=== PATIENT | male | born 1970 | race Caucasian/White ===

== ENCOUNTER 2018-08-17 14:04 | Inpatient (IN) | payer OTHER ==
[2018-08-17] MEDS ORDERED: SODIUM CHLORIDE 0.9% 500 ML INFUS.BAG IV ONE (14:26)
--- NOTE | 2018-08-17 14:43 | PDOC ---
History of Present Illness <Maritza Whitman - Last Filed: 08/17/18 16:03> - General History Source: Patient Exam Limitations: No Limitations - History of Present Illness Initial Comments: 48 yo morbidly obese M w a hx of NIDDM, HTN, HLD, KACY, multiple spinal disc herniations s/p laminectomy september 2017, presents to the ER after he was noted to be unresponsive upstairs in the hospital by a nurse. The patient was visiting his mother who is currently in the hospital, and while he was sitting down a nurse thought he was unresponsive. The patient said he has sleep apnea and is always tired no matter how much he sleeps. He states that today he dozed off in his chair before falling asleep and doesn't believe he was unresponsive, just believes he took a nap. The patient was diagnosed with sleep apnea and knows he should be using his CPAP but doesn't like to use it bc he feels claustrophobic. The patient says that he is always tired, and occasionally his legs and body just give out on him. He denies hypnogogic or hypnopompic hallucinations. Patient endorses waking up and feeling warm for the past few days which were associated with episodes of chills. He denies any recent chest pain, SOB, cough, headache, lightheadedness, abdominal pain, dysuria, frequency, or urgency. PCP: Dr. Hernadez (Formerly Dr. Gutierrez) Allergies: NKA, NKDA Social Hx: recreational drinking. Denies smoking or other substance usage. PSH: Laminectomy, right knee replacement. 08/17/18 16:34 <Maurizio Peña - Last Filed: 08/17/18 17:00> - General Stated Complaint: UNRESPONSIVE Time Seen by Provider: 08/17/18 14:21 Past History <Maritza Whitman - Last Filed: 08/17/18 16:03> - Past Medical History Anemia: No Asthma: No Cancer: No Cardiac Disorders: No CVA: No COPD: No CHF: No Dementia: No Diabetes: No GI Disorders: Yes (PUD) Disorders: No HTN: Yes Hypercholesterolemia: Yes Liver Disease: No Seizures: No Thyroid Disease: No - Surgical History Abdominal Surgery: Yes (LAPAROSCOPIC GASTRIC BANDING) Appendectomy: No Cardiac Surgery: No Cholecystectomy: No Lung Surgery: No Neurologic Surgery: No Orthopedic Surgery: No - Immunization History Immunization Up to Date: Yes - Suicide/Smoking/Psychosocial Hx Smoking Status: No Smoking History: Former smoker Have you smoked in the past 12 months: No Number of Cigarettes Smoked Daily: 0 If you are a former smoker, when did you quit?: 17 YRS Hx Alcohol Use: No Drug/Substance Use Hx: No Substance Use Type: Alcohol Hx Substance Use Treatment: No <Maurizio Peña - Last Filed: 08/17/18 17:00> - Past Medical History Allergies/Adverse Reactions: Allergies Allergy/AdvReac Type Severity Reaction Status Date / Time No Known Allergies Allergy Verified 03/07/16 15:31 Home Medications: Ambulatory Orders Atorvastatin Calcium [Lipitor] 10 mg PO HS 05/12/12 Lisinopril/Hydrochlorothiazide [Lisinopril-Hctz 10-12.5 mg Tab] 1 each PO DAILY 05/12/12 Multivitamin [Multivitamins] 1 each PO DAILY 10/25/13 Sennosides/Docusate Sodium [Eql Stool Softener-Stim Lax Tb] 2 each PO DAILY 07/09 Diazepam [Valium] 5 mg PO Q8H #10 tablet MDD 3 12/08/15 Methylprednisolone [Medrol Dose Luis] 4 mg PO ASDIR #21 tablet 12/08/15 Review of Systems - Review of Systems Able to Perform ROS?: Yes Comments:: CONSTITUTIONAL: Present: Chills, fatigue Absent: fever EYES: Absent: visual changes ENT: Absent: ear pain, no sore throat CARDIOVASCULAR: Absent: chest pain, no palpitations RESPIRATORY: Absent: cough, no SOB GI: Absent: abdominal pain, no nausea, no vomiting, no constipation, no diarrhea GENITOURINARY: Absent: dysuria, no frequency, no hematuria MUSKULOSKELETAL: Present: arthralgia, back pain Absent: no myalgia SKIN: Absent: rash NEURO: Absent: headache <Maurizio Peña - Last Filed: 08/17/18 17:00> *Physical Exam - Vital Signs Last Vital Signs Temp Pulse Resp BP Pulse Ox 97.7 F 79 18 139/86 92 L 08/17/18 14:41 08/17/18 14:41 08/17/18 14:41 08/17/18 14:41 08/17/18 14:41 <Maritza Whitmanabigail - Last Filed: 08/17/18 16:03> - Physical Exam Comments: GENERAL: Well-appearing, well-nourished. No apparent distress. HEENT: Normocephalic, atraumatic. PERRL, EOM intact. CARDIOVASCULAR: Normal S1, S2. Regular rate and rhythm. PULMONARY: No evidence of respiratory distress. Lungs clear to auscultation bilaterally. No wheezing, rales or rhonchi. ABDOMEN: Soft, non-distended, non-tender. EXTREMITIES: Normal ROM in all four extremities. No gross deformities. SKIN: the right leg is warm, erythematous and mildly painful to palpation. NEUROLOGICAL: No focal neurological deficits. <Maurizio Peña - Last Filed: 08/17/18 17:00> ED Treatment Course - LABORATORY CBC & Chemistry Diagram: 08/17/18 14:50 08/17/18 14:50 - ADDITIONAL ORDERS Additional order review: Laboratory Results 08/17/18 08/17/18 14:50 14:28 Sodium 141 Potassium 3.5 Chloride 98 Carbon Dioxide 39 H Anion Gap 4 L BUN 12 Creatinine 0.7 Creat Clearance w eGFR 119.37 POC Glucometer 152 Random Glucose 146 H Calcium 8.4 L Total Bilirubin 0.6 AST 20 ALT 23 Alkaline Phosphatase 102 Troponin I 0.08 H B-Natriuretic Peptide 152.2 H Total Protein 6.3 L Albumin 3.5 08/17/18 08/17/18 14:50 14:28 RBC 5.38 MCV 86.3 MCHC 33.4 RDW 15.0 D MPV 7.4 L Neutrophils % 69.0 Lymphocytes % 20.6 Monocytes % 7.7 Eosinophils % 2.1 Basophils % 0.6 POC Glucometer 152 - Medications Given in the ED: ED Medications Discontinued Medications Generic Name Dose Route Start Last Admin Trade Name Freq PRN Reason Stop Dose Admin Sodium Chloride 1,000 ml 08/17/18 14:26 08/17/18 14:31 Normal Saline - IV 08/17/18 14:27 1,000 ml ONCE ONE Administration <Maritza Whitman - Last Filed: 08/17/18 16:03> - LABORATORY CBC & Chemistry Diagram: 08/17/18 14:50 08/17/18 14:50 - ADDITIONAL ORDERS Additional order review: Laboratory Results 08/17/18 14:28 POC Glucometer 152 08/17/18 14:28 POC Glucometer 152 - Medications Given in the ED: ED Medications Discontinued Medications Generic Name Dose Route Start Last Admin Trade Name Brian PRN Reason Stop Dose Admin Sodium Chloride 1,000 ml 08/17/18 14:26 08/17/18 14:31 Normal Saline - IV 08/17/18 14:27 1,000 ml ONCE ONE Administration <Maurizio Peña - Last Filed: 08/17/18 17:00> Medical Decision Making - Medical Decision Making 48 yo morbidly obese M w a hx of NIDDM, HTN, HLD, KACY, multiple spinal disc herniations s/p laminectomy september 2017, presents to the ER after he was noted to be unresponsive upstairs in the hospital by a nurse. The patient was visiting his mother who is currently in the hospital, and while he was sitting down a nurse thought he was unresponsive. The patient said he has sleep apnea and is always tired no matter how much he sleeps. He states that today he dozed off in his chair before falling asleep and doesn't believe he was unresponsive, just believes he took a nap. The patient was diagnosed with sleep apnea and knows he should be using his CPAP but doesn't like to use it bc he feels claustrophobic. The patient says that he is always tired, and occasionally his legs and body just give out on him. He denies hypnogogic or hypnopompic hallucinations. VS: patient is satting at 92 on RA. DDx IBNLT: KACY, narcolepsy, [place], arrhythmia, electrolyte disturbance, syncope, seizure, infection, uti, cellulitis. Plan: Labs, ekg, CXR, IV hydration, re-assess. - Area on left leg appears cellulitic. Pending labs, will consider giving patient oral Abx for cellulitis treatment. Labs show a mildly elevated trop of 0.08. Will admit patient to Tele obs for further evaluation and a cardiac consult. Spoke with Dr. Rodriguez - the patient's old PCP who agrees with plan to admit patient to the hospital. The patient now uses Dr. Hernadez for insurance purposes. Will Call Dr. Hernadez's office for admission. Dr. Hernadez accepted the patient admission. He requested I place a cardiac consult for Dr. Bradlow - will place consult as per Dr. Hernadez's request. <Maurizio Peña - Last Filed: 08/17/18 17:00> *DC/Admit/Observation/Transfer - Discharge Dispostion Decision to Admit order: Yes <Maritza Whitman - Last Filed: 08/17/18 16:03> - Discharge Dispostion Decision to Admit order: Yes <Maurizio Peña - Last Filed: 08/17/18 17:00> Diagnosis at time of Disposition: NSTEMI (non-ST elevated myocardial infarction), Syncope - Discharge Dispostion Condition at time of disposition: Guarded - Referrals Referrals: Jovani Hernadez MD [Primary Care Provider] - - Patient Instructions - Post Discharge Activity
[2018-08-17 15:11] LABS: BASO % 0.6 % (0-2.0); EOS % 2.1 % (0-4.5); HEMATOCRIT 46.5 % (35.4-49); HEMOGLOBIN 15.5 GM/dL (11.7-16.9); LYMPH % 20.6 % (8-40); MCH 28.9 pg (25.7-33.7); MCHC 33.4 g/dl (32.0-35.9); MEAN CELL VOLUME 86.3 fl (80-96); MEAN PLT VOLUME 7.4 fl (7.5-11.1); MONO % 7.7 % (3.8-10.2); PLATELET COUNT 165 K/MM3 (134-434); RBC 5.38 M/mm3 (4.00-5.60); WHITE BLOOD COUNT 6.4 K/mm3 (4.0-10.0)
[2018-08-17 15:49] LABS: ALBUMIN 3.5 g/dl (3.4-5.0); ALK PHOS 102 U/L (45-117); ANION GAP 4 MMOL/L (8-16); BILIRUBIN,TOTAL 0.6 mg/dL (0.2-1); BLOOD UREA NITROGEN 12 mg/dL (7-18); CALCIUM 8.4 mg/dL (8.5-10.1); CHLORIDE 98 mmol/L (98-107); CO2 39 mmol/L (21-32); CREATININE 0.7 mg/dL (0.55-1.3); GLUCOSE,RANDOM 146 mg/dL (74-106); N-TERMINAL BNP 152.2 pg/ml (5-125); POTASSIUM 3.5 mmol/L (3.5-5.1); SGOT/AST 20 U/L (15-37); SGPT/ALT 23 U/L (13-61); SODIUM 141 mmol/L (136-145); TOT PROT 6.3 g/dl (6.4-8.2)
--- NOTE | 2018-08-17 15:52 | PDOC ---
Attending Attestation - Resident Resident Name: Maurizio Peña - ED Attending Attestation I have performed the following: I have examined & evaluated the patient, The case was reviewed & discussed with the resident, I agree w/resident's findings & plan - [facility] HPI: 08/17/18 15:56 48 YOM w a PMH of NIDDM, HTN, HLD, KACY, multiple spinal disc herniations s/p laminectomy who presents to the ER s/p [facility] upstairs at [facility] after being found unresponsive in the chair by a nurse while visiting his mother at the hospital. Patient reports that he has a history of sleep apnea and is often tired throughout the day. He notes he may have fallen asleep earlier today. Does not use CPAP at home. Denies fever, chills, chest pain, palpitation, dizziness, weakness, N, V, D, abdominal pain, No sick contacts or travel. No new changes in medications. PCP: Dr. Hernadez (Formerly Dr. Bedoya) Allergies: NKA, NKDA Social Hx: recreational drinking. Denies smoking or other substance usage. PSH: Laminectomy, right knee replacement. 08/17/18 16:01 - Physicial Exam PE: 08/17/18 16:01 NAD, morbidly obese, snoring. PERRL, EOMI, MMM, nl conjunctiva, anicteric; no JVD, neck supple. lungs clear, RRR, abdomen soft nontender. [place] x4, no focal neuro deficits. minimal bilateral peripheral edema. normal color for ethnicity, WWP. no calf tenderness. no rash or skin changes to suggest infection. - Medical Decision Making 08/17/18 15:57 I, Maritza Whitman MD, attest that this document has been prepared under my direction and personally reviewed by me in its entirety. I further attest, that it accurately reflects all work, treatment, procedures and medical decision -making performed by me. See HPI for details DDx. syncope, cardiogenic, arryhthmia, ACS, electrolyte/metabolic derangements. CHF, CO2 retention. clinically considered but doubt infection, doubt PE or dissection. Vital signs reviewed, normotensive, normal HR, SpO2 borderline at 92% - has pickwickian habitus. snoring on stretcher bed. Prior notes reviewed, including admissions, discharges and consultations. laboratory results and imaging reviewed, basic labs and lytes wnl UA_unremarkable CXR_no acute chest pathology, poor inspiratory effort. Cardiac panel_+trop to 0.08, trend, tele bnp not remarkable for CHF/cardiomyopathy. EKG normal sinus rhythm at 76 bpm, no interval abnormalities, narrow QRS, ST and T wave segments and morphology normal. Nonspecific T wave abnormalities in precordial leads - no prior, some ischemic findings noted. ED course - most likely KACY, non compliant with cpap, however with trop elevation, needs to be r/o ACS/arrhythmia. - NSTEMI, given ASA -dispo: admit for tele, serial trops, r/o ACS as etiology for his episode of unresponsiveness vs syncope; 08/17/18 17:14 Heart Score/ECG Review #1 ECG reviewed & interpreted by me at: 14:15 General ECG Interpretation: Sinus Rhythm, Normal Rate Compared to previous ECG there are: Previous ECG unavail 08/17/18 15:59 EKG normal sinus rhythm at 76 bpm, no interval abnormalities, narrow QRS, ST and T wave segments and morphology normal. Nonspecific T wave abnormalities in precordial leads - no prior 08/17/18 15:59
[2018-08-17 15:55] LABS: URINE APPEARANCE CLOUDY; URINE BILIRUBIN NEGATIVE (NEGATIVE); URINE COLOR YELLOW; URINE GLUCOSE (UA) NEGATIVE (NEGATIVE); URINE KETONE NEGATIVE (NEGATIVE); URINE LEUK ESTERASE NEGATIVE (NEGATIVE); URINE NITRITE NEGATIVE (NEGATIVE); URINE PROTEIN NEGATIVE (NEGATIVE); URINE UROBILINOGEN 0.2 mg/dL (0.2-1.0)
[2018-08-17] MEDS ORDERED: ASPIRIN 81 MG CHEWABLE TABLETS PO ONE (16:02)
[2018-08-17] MEDS ORDERED: ASPIRIN 81 MG CHEWABLE TABLETS ONE (16:18)
[2018-08-17] MEDS ORDERED: POTASSIUM CHLORIDE TABS 20 MEQ TABLET.ER (FP) PO ONE (19:00)
[2018-08-17] MEDS ORDERED: ATORVASTATIN CA 10 MG TABLET (FP) ONE (22:51)
[2018-08-17] MEDS: ATORVASTATIN CA 10 MG TABLET (FP) PO SCH (22:54)
[2018-08-18] MEDS: HEPARIN NA (PORCINE) 5,000 UNITS/ML 1ML VIAL SQ SCH ×3 (06:18→23:26)
[2018-08-18 06:47] LABS: BASO % 0.5 % (0-2.0); EOS % 2.7 % (0-4.5); HEMATOCRIT 49.3 % (35.4-49); HEMOGLOBIN 16.1 GM/dL (11.7-16.9); LYMPH % 23.2 % (8-40); MCH 28.4 pg (25.7-33.7); MCHC 32.7 g/dl (32.0-35.9); MEAN CELL VOLUME 86.8 fl (80-96); MEAN PLT VOLUME 7.6 fl (7.5-11.1); MONO % 8.7 % (3.8-10.2); NEUT % 64.9 % (42.8-82.8); PLATELET COUNT 160 K/MM3 (134-434); RBC 5.67 M/mm3 (4.00-5.60); RDW 15.3 % (11.9-15.9); WHITE BLOOD COUNT 7.4 K/mm3 (4.0-10.0)
[2018-08-18 06:59] LABS: ALBUMIN 3.3 g/dl (3.4-5.0); ALK PHOS 96 U/L (45-117); ANION GAP 4 MMOL/L (8-16); BILIRUBIN,TOTAL 0.6 mg/dL (0.2-1); BLOOD UREA NITROGEN 9 mg/dL (7-18); CALCIUM 8.5 mg/dL (8.5-10.1); CHLORIDE 100 mmol/L (98-107); CHOLESTEROL 141 mg/dL (50-200); CO2 38 mmol/L (21-32); CREATININE 0.7 mg/dL (0.55-1.3); GLUCOSE,RANDOM 143 mg/dL (74-106); HDL CHOLESTEROL 52 mg/dL (40-60); MAGNESIUM 2.1 mg/dL (1.8-2.4); POTASSIUM 3.9 mmol/L (3.5-5.1); SGOT/AST 27 U/L (15-37); SGPT/ALT 24 U/L (13-61); SODIUM 141 mmol/L (136-145); TOT PROT 6.2 g/dl (6.4-8.2); TRIGLYCERIDES 82 mg/dL (0-150)
--- NOTE | 2018-08-18 09:20 | EKG ---
Test Reason : Blood Pressure : / mmHG Vent. Rate : 069 BPM Atrial Rate : 069 BPM P-R Int : 188 ms QRS Dur : 098 ms QT Int : 408 ms P-R-T Axes : 031 037 023 degrees QTc Int : 437 ms NORMAL SINUS RHYTHM NORMAL ECG WHEN COMPARED WITH ECG OF 17-AUG-2018 14:14, NO SIGNIFICANT CHANGE WAS FOUND Confirmed by RYAN SUAREZ MD ([id number]) on 08/18/2018 9:20:09 AM Referred By: Confirmed By:RYAN SUAREZ MD
--- NOTE | 2018-08-18 09:22 | EKG ---
Test Reason : Blood Pressure : / mmHG Vent. Rate : 076 BPM Atrial Rate : 076 BPM P-R Int : 190 ms QRS Dur : 098 ms QT Int : 394 ms P-R-T Axes : 054 021 024 degrees QTc Int : 443 ms NORMAL SINUS RHYTHM NONSPECIFIC T WAVE ABNORMALITY ABNORMAL ECG WHEN COMPARED WITH ECG OF 05-NOV-2001 09:57, T WAVE VARIATION Confirmed by RYAN SUAREZ MD ([id number]) on 08/18/2018 9:22:33 AM Referred By: Confirmed By:RYAN SUAREZ MD
[2018-08-18] MEDS ORDERED: PATIENT'S OWN MEDICATION (NON-FORMULARY) (Lisinopril/Hydrochlorothiazide [Lisinopril-Hctz PO SCH (10:00)
[2018-08-18] MEDS: SENNOSIDES/DOCUSATE COMBO (SENNA PLUS) TABLET (UD) PO SCH (10:13)
[2018-08-18] MEDS: LISINOPRIL 10 MG TABLET (FP) PO SCH (10:13)
[2018-08-18] MEDS: HYDROCHLOROTHIAZIDE 12.5 MG CAPSULE (FP) PO SCH (10:13)
--- NOTE | 2018-08-18 11:04 | CON.CARD ---
Consult Consult Specialty:: Cardiology Referred by:: Dr. Hernadez Reason for Consultation:: elevated troponin - History of Present Illness Chief Complaint: unresponsive History of Present Illness: 48 year old man with a pmh obesity s/p lap band years ago with recurrent weight gain, KACY does not use CPAP, HTN, HLD, DMII, h/o multiple spinal disc herniations s/p laminectomy 2018 was here at hospital yesterday visiting his mother when he was found difficult to awaken. Pt seen and examined today in nad. pt states that he has chronic daytime somnolence and often falls asleep inappropriately. states that he was visiting his mother yesterday and sitting in the chair. when she fell asleep he decided to take a nap and went to sleep. the next thing he knew he was surrounded by doctors and nurses. He denies having had any symptoms prior to falling asleep or after. denies ever having any chest pain. no palpitations. no pnd, orthopnea. he does have chronic b/l LE edema that is unchanged. On labs in the ER was noted to have a mildly elevated troponin. Currently states he feels at his baseline. denies any symptoms currently. - History Source History Provided By: Patient, Medical Record Limitations to Obtaining History: No Limitations - Past Medical History Cardio/Vascular: Yes: HTN, Hyperlipdemia Pulmonary: Yes: Sleep Apnea Musculoskeletal: Yes: Chronic low back pain Endocrine: Yes: Diabetes Mellitus - Past Surgical History Past Surgical History: Yes: Bariatric Surgery, Laminectomy - Alcohol/Substance Use Hx Alcohol Use: No - Smoking History Smoking history: Former smoker Have you smoked in the past 12 months: No Aproximately how many cigarettes per day: 0 If you are a former smoker, when did you quit?: 17 YRS - Social History ADL: Independent History of Recent Travel: No Home Medications - Allergies Allergies/Adverse Reactions: Allergies Allergy/AdvReac Type Severity Reaction Status Date / Time No Known Allergies Allergy Verified 03/07/16 15:31 - Home Medications Home Medications: Ambulatory Orders Atorvastatin Calcium [Lipitor] 10 mg PO HS 05/12/12 Lisinopril/Hydrochlorothiazide [Lisinopril-Hctz 10-12.5 mg Tab] 1 each PO DAILY 05/12/12 Multivitamin [Multivitamins] 1 each PO DAILY 10/25/13 Sennosides/Docusate Sodium [Eql Stool Softener-Stim Lax Tb] 2 each PO DAILY 07/09 Diazepam [Valium] 5 mg PO Q8H #10 tablet MDD 3 12/08/15 Methylprednisolone [Medrol Dose Luis] 4 mg PO ASDIR #21 tablet 12/08/15 Gabapentin [Neurontin -] 300 mg PO Q8H 08/18/18 Metformin HCl [Glucophage] 500 mg PO BID 08/18/18 Family Disease History - Family Disease History Family History: Denies Review of Systems - Review of Systems Constitutional: denies: No Symptoms, Chills, Diaphoresis, Fever, Lethargy, Loss of Appetite, Malaise, Night Sweats, Unintentional Wgt. Loss, Weakness, Other Eyes: denies: No Symptoms, Blind Spots, Blurred Vision, Double Vision, Eye Pain , Floaters, Photophobia, Recent Change in Vision, Other HENT: denies: No Symptoms, Difficult Swallowing, Ear Discharge, Ear Pain, Epistaxis, Gingival Bleeding, Hearing Loss, Mouth Swelling, Nasal Congestion, Ocular Prosthesis, Throat Pain, Toothache, Ringing in Ears, Other Neck: denies: No Symptoms, Decreased ROM, Lumps, Pain on Movement, Stiffness, Swollen Glands, Tenderness, Other Cardiovascular: reports: Edema. denies: No Symptoms, Chest Pain, Palpitations, Shortness of Breath, Other Respiratory: reports: Snoring. denies: No Symptoms, Cough, Exercise Intolerance , Hemoptysis, Orthopnea, PND, SOB, SOB on Exertion, Wheezing, Other Gastrointestinal: denies: No Symptoms, Abdominal Pain, Bloating, Constipation, Diarrhea, Dysphagia, Indigestion, Melena, Nausea, Rectal Bleeding, Vomiting, Vomiting Blood, Other Genitourinary: denies: No Symptoms, Burning, Discharge, Dysuria, Flank Pain, Frequency, Hematuria, Incontinence, Lesions, Menses, Pain, Testicular Mass, Testicular Pain, Testicular Swelling, Urgency, Vaginal Bleeding, Other Breasts: denies: No Symptoms Reported, See HPI, Breast Implants, Discharge from Nipple, Lumps, Pain, Skin Changes, Other Musculoskeletal: reports: Back Pain. denies: No Symptoms, Crepitus, Decreased ROM, Extremity Pain, Joint Pain, Joint Swelling, Muscle Pain, Muscle Cramps, Muscle Weakness, Other Integumentary: denies: No Symptoms, Blister, Bruising, Change in Color, Eczema, Erythema, Incision, Lesions, Lump, Pallor, Pruritis, Rash, Wound, Other Neurological: denies: No Symptoms, Change in LOC, Change in Speech, Confusion, Dizziness, Headache, Incoordination, Numbness, Parasthesia, Pre-Existing Deficit , Seizure, Syncope, Tremors, Unsteady Gait, Weakness, Other Endocrine: denies: No Symptoms, Excessive Sweating, Flushing, Increased Hunger, Increased Thirst, Intolerance to Cold, Intolerance to Heat, Unexplained Weight Gain, Unexplained Weight Loss, Other Hematology/Lymphatic: denies: No Symptoms, Easily Bruised, Excessive Bleeding, Swollen Glands, Other Psychiatric: denies: No Symptoms, Altered Sleep Pattern, Anxiety, Depression, Hallucinations, Panic, Paranoia, Suicidal, Other - Risk Factors Known Risk Factors: Yes: Diabetes Mellitus, Hypercholesterolemia, Hypertension, Physical Inactivity Vital Signs: Vital Signs Temperature 98.8 F 08/18/18 06:34 Pulse Rate 76 08/18/18 10:13 Respiratory Rate 18 08/18/18 10:13 Blood Pressure 140/76 08/18/18 10:13 O2 Sat by Pulse Oximetry (%) 93 L 08/18/18 10:14 Constitutional: Yes: No Distress, Calm, Obese Eyes: Yes: Conjunctiva Clear, EOM Intact HENT: Yes: Atraumatic, Normocephalic Neck: Yes: Supple, Trachea Midline Respiratory: Yes: Regular, CTA Bilaterally. No: Rales, Rhonchi, Wheezes Gastrointestinal: Yes: Normal Bowel Sounds, Soft. No: Distention, Tenderness Cardiovascular: Yes: Regular Rate and Rhythm. No: Bradycardia, Tachycardia, Pulse Irregular, Gallop, Rub, Varicosities JVD: No Carotid Bruit: No PMI: Non-Displaced Heart Sounds: Yes: S1, S2. No: Split S2, S3, S4, Clicks, Gallop, Rub, Bruit Murmur: No: Systolic Murmur, Diastolic Murmur Musculoskeletal: Yes: Back Pain Extremities: Yes: WNL Edema: Yes Edema: LLE: Trace, RLE: Trace Peripheral Pulses WNL: Yes Neurological: Yes: Alert, Oriented Psychiatric: Yes: Alert, Oriented - Other Data Labs, Other Data: CBC, BMP 08/18/18 05:30 08/18/18 05:30 Troponin, BNP 08/17/18 08/17/18 08/18/18 14:50 19:05 01:52 Troponin I 0.08 H 0.08 H B-Natriuretic Peptide 152.2 H 124.7 08/18/18 05:30 Troponin I 0.09 H B-Natriuretic Peptide Troponin, BNP 08/17/18 08/17/18 08/18/18 14:50 19:05 01:52 Troponin I 0.08 H 0.08 H B-Natriuretic Peptide 152.2 H 124.7 08/18/18 05:30 Troponin I 0.09 H B-Natriuretic Peptide ekg nsr 76bpm, nsst Imaging - Results Chest X-ray: Report Reviewed, Image Reviewed EKG: Report Reviewed, Image Reviewed Other: Report Reviewed, Image Reviewed Assessment/Plan 48 year old man with a pmh obesity s/p lap band years ago with recurrent weight gain, KACY does not use CPAP, HTN, HLD, DMII, h/o multiple spinal disc herniations s/p laminectomy 2018 was here at hospital yesterday visiting his mother when he was found difficult to awaken. pt states that he has chronic daytime somnolence and often falls asleep inappropriately. states that he was visiting his mother yesterday and sitting in the chair. when she fell asleep he decided to take a nap and went to sleep. the next thing he knew he was surrounded by doctors and nurses. He denies having had any symptoms prior to falling asleep or after. denies ever having any chest pain. no palpitations. no pnd, orthopnea. he does have chronic b/l LE edema that is unchanged. On labs in the ER was noted to have a mildly elevated troponin. Currently states he feels at his baseline. denies any symptoms currently. Elevated troponin -with normal CK level and troponin did not significantly trend up -unlikely ACS -more likely secondary to multiple cardiac risk factors and severe untreated KACY -other than the episode of unresponsiveness which appears c/w falling asleep in setting of his known untreated KACY -pt does have multiple cardiac risk factors and warrants further cardiac work up including an echo and a stress test -further cardiac work up can likely be done as outpatient. -consider evaluation for pulmonary embolism/DVT Unresponsiveness -unlikely ACS, does not appear cardiac in origin -appears c/w his inappropriate falling asleep episodes due to severe untreated KACY
--- NOTE | 2018-08-18 11:35 | PN ---
Progress Note, Physician Chief Complaint: Elevated troponin Unresponsiveness History of Present Illness: History and Physical 48 YOM w a PMH of NIDDM, HTN, HLD, KACY, multiple spinal disc herniations s/p laminectomy who presents to the ER s/p [employer]STING [employer] BED upstairs at [facility] after being found unresponsive in the chair by a nurse while visiting his mother at the hospital. Patient reports that he has a history of sleep apnea and is often tired throughout the day. He notes he may have fallen asleep earlier today. Does not use CPAP at home. Denies fever, chills, chest pain, palpitation, dizziness, weakness, N, V, D, abdominal pain, No sick contacts or travel. No new changes in medications. Seen by Cardiology Elevated trops non specific Awaiting echo, U/S doppler lower ext and stress test Pulmonary consult for sleep studies - Current Medication List Current Medications: Active Medications Atorvastatin Calcium (Lipitor -) 10 mg PO HS [facility] Last Admin: 08/17/18 22:54 Dose: 10 mg Heparin Sodium (Porcine) (Heparin -) 5,000 unit SQ TID [facility] Last Admin: 08/18/18 06:18 Dose: 5,000 unit Hydrochlorothiazide (Hctz -) 12.5 mg PO DAILY [facility] Last Admin: 08/18/18 10:13 Dose: 12.5 mg Lisinopril (Prinivil) 10 mg PO DAILY [facility] Last Admin: 08/18/18 10:13 Dose: 10 mg Senna/Docusate Sodium (Pericolace -) 2 tablet PO DAILY [facility] Last Admin: 08/18/18 10:13 Dose: 2 tablet Sitagliptin Phosphate (Januvia -) 100 mg PO DAILY@0700 [facility] - Objective Vital Signs: Vital Signs Temperature 98.8 F 08/18/18 06:34 Pulse Rate 76 08/18/18 10:13 Respiratory Rate 18 08/18/18 10:13 Blood Pressure 140/76 08/18/18 10:13 O2 Sat by Pulse Oximetry (%) 93 L 08/18/18 10:14 Constitutional: Yes: Well Nourished, No Distress, Calm, Obese Cardiovascular: Yes: Regular Rate and Rhythm Respiratory: Yes: Regular Gastrointestinal: Yes: WNL Genitourinary: Yes: WNL Musculoskeletal: Yes: WNL Extremities: Yes: WNL Edema: No Peripheral Pulses WNL: Yes Neurological: Yes: Alert, Oriented Psychiatric: Yes: Alert, Oriented Labs: CBC, BMP 08/18/18 05:30 08/18/18 05:30 Problem List - Problems (1) Elevated troponin Assessment/Plan: -Seen by Cardiology -with normal CK level and troponin did not significantly trend up -unlikely ACS -more likely secondary to multiple cardiac risk factors and severe untreated KACY Code(s): R74.8 - ABNORMAL LEVELS OF OTHER SERUM ENZYMES (2) Syncope Assessment/Plan: -Unlikely that patient lost consciousness -appears c/w his inappropriate falling asleep episodes due to severe untreated KACY Code(s): R55 - SYNCOPE AND COLLAPSE (3) Low back pain Assessment/Plan: -Continue Gabapentin 300 mg po tid Code(s): M54.5 - LOW BACK PAIN Qualifiers: Chronicity: chronic Back pain laterality: bilateral Sciatica presence: with sciatica Sciatica laterality: sciatica of right side Qualified Code(s) : M54.41 - Lumbago with sciatica, right side; G89.29 - Other chronic pain (4) Diabetes Assessment/Plan: -BGM AC HS -Diabetic low sodium diet -On Januvia -Check A1c -RD consult Code(s): E11.9 - TYPE 2 DIABETES MELLITUS WITHOUT COMPLICATIONS Qualifiers: Diabetes mellitus type: type 2 (5) Morbid (severe) obesity due to excess calories Assessment/Plan: -RD consult Code(s): E66.01 - MORBID (SEVERE) OBESITY DUE TO EXCESS CALORIES (6) KACY (obstructive sleep apnea) Assessment/Plan: -Pulmonary consult for sleep medicine Code(s): G47.33 - OBSTRUCTIVE SLEEP APNEA (ADULT) (PEDIATRIC) Assessment/Plan See problem list
--- NOTE | 2018-08-18 12:32 | PN ---
Progress Note (short form) - Note Progress Note: PULMONARY CONSULTATION DICTATED 08/18/18 IMP ACUTE ON CHRONIC HYPOXEMIC/HYPARCAPNEIC RESPIRATORY FAILURE LIKELY SECONDARY SEVERE OSAS,OBESITY HYPOVENTILATION SYNDROME SEVERE OSAS NOT COMPLIANT WITH CPAP UNRESPONSIVENESS LIKELY SECONDARY TO KACY WITH EXCESSIVE DAYTIME SLEEPINESS + TROPONIN R/O PULMONARY HTN DM HTN MORBID OBESITY H/O LAP BAND PLAN O2 TO MINTAIN SAT 90% OR GREATER ABG ON RA BIPAP AT NIGHT AND PRN IF PT COMPLIES ECHO D-DIMER IF ELEVATED CHEST CTA DUPLEX LOWER EXT LASIX DAILY WT TREND TROPONINS FURTHER CARDIAC W/U PER CARDIOLOGY DR LOVE Problem List - Problems (1) Hypoxemia Code(s): R09.02 - HYPOXEMIA (2) Elevated troponin Code(s): R74.8 - ABNORMAL LEVELS OF OTHER SERUM ENZYMES (3) KACY (obstructive sleep apnea) Code(s): G47.33 - OBSTRUCTIVE SLEEP APNEA (ADULT) (PEDIATRIC) (4) Unresponsive episode Code(s): R41.89 - OTH SYMPTOMS AND SIGNS W COGNITIVE FUNCTIONS AND AWARENESS (5) Morbid (severe) obesity due to excess calories Code(s): E66.01 - MORBID (SEVERE) OBESITY DUE TO EXCESS CALORIES (6) Morbid (severe) obesity due to excess calories Code(s): E66.01 - MORBID (SEVERE) OBESITY DUE TO EXCESS CALORIES (7) HTN (hypertension) Code(s): I10 - ESSENTIAL (PRIMARY) HYPERTENSION (8) Diabetes Code(s): E11.9 - TYPE 2 DIABETES MELLITUS WITHOUT COMPLICATIONS
--- NOTE | 2018-08-18 13:20 | CONS ---
PULMONARY CONSULTATION DATE OF CONSULTATION: 08/18/2018 REFERRING PHYSICIAN: Jovani Hernadez MD The patient is a 48-year-old white male with past medical history of morbid obesity status post Lap-Band 7 years ago, recurrent weight gain; severe obstructive sleep apnea, not compliant with CPAP; hypertension; hyperlipidemia; type 2 diabetes; spinal disk herniation status post laminectomy in 2018, admitted to [facility] when while visiting his mother yesterday, he was found asleep and difficult to awaken. Rapid response was called, and patient was transferred down to the ER for evaluation. Patient states that he was visiting his mother, and his mother fell asleep. Then, he made himself comfortable and fell asleep. Apparently, he was found by his sister to be very difficult to arouse, unresponsive, at which time, rapid response was called. Patient was transferred to the ER. Patient denied any chest pain, nausea, vomiting, diaphoresis. Denied any hemoptysis. Of note is while on the telemetry unit, while sleeping, he was noted to have hypoxemia on O2. When he wakes up, his O2 saturations go to 96% on O2. They report he has a history of severe obstructive sleep apnea, refuses to use CPAP secondary to feeling uncomfortable and claustrophobic. He denies any chest pains, palpitations. He does complain of excessive daytime sleepiness and weight gain. Of note is on admission, he was also found to have elevated troponin levels. He was evaluated by Dr. Nettles from Cardiology for the above. PAST MEDICAL HISTORY: Again includes severe obstructive sleep apnea, not on CPAP; hypertension; hyperlipidemia; diabetes; morbid obesity; multiple spinal disk herniations status post laminectomy in 2018. SOCIAL HISTORY: History of tobacco use, quit 17 years ago. No occupational exposures. REVIEW OF SYSTEMS: No orthopnea. Positive dyspnea on exertion. . No chest pain. No palpitations. No cough. No hemoptysis. No fever, weight loss, night sweats. Positive lower extremity edema. CURRENT MEDICATIONS: Include Prinivil, heparin subcutaneous, Neurontin, Caridad- Colace, Januvia, Lipitor, and hydrochlorothiazide. PHYSICAL EXAMINATION: General: The patient is a morbidly obese male, well awake, alert. No acute distress. Vital Signs: He is afebrile. Blood pressure is 140/76, respiratory rate is 18 , O2 saturation 99% on room air while awake. HEENT: Normocephalic, atraumatic. Neck: Supple. Heart: Regular. S1, S2. Chest: Diminished breath sounds bilaterally. Abdomen: Soft. Bowel sounds are positive. Extremities: Bilateral lower extremity edema. LABORATORY DATA: WBC is 7.4, hemoglobin 16.1, hematocrit 49.3 with a platelet count of 160,000. INR is 1.05. Chemistries: BUN 9, creatinine 0.7. Hemoglobin A1c is 7.4. Troponin 0.09. Chest x-ray: No infiltrates and no effusions. IMPRESSION: 1. Acute on Chronic Hypoxemia/Hypercapneic respiratory failure, likely secondary to severe obstructive sleep apnea with obesity hypoventilation syndrome. 2. Severe obstructive sleep apnea, not compliant with continuous positive airway pressure. 3. Unresponsiveness, most likely secondary to severe excessive daytime sleepiness due to obstructive sleep apnea. 4. Positive troponins. 5. Rule out pulmonary hypertension. 6. Diabetes. 7. Hypertension. 8. Morbid obesity. 9. History of Lap-Band. PLAN: Supplemental O2, arterial blood gases on room air. Obtain echo, D- dimer. If elevated, would obtain a CTA of the chest. Duplex, lower extremities to rule out DVT. Lasix as needed. Daily weights. Trend troponins and further cardiac workup as per Cardiology.NIPPV if pt complies Suraj SCANLON/[id number] MTDD
[2018-08-18] MEDS: GABAPENTIN 300 MG CAPSULE (FP) PO SCH ×2 (14:44→23:26)
[2018-08-18] MEDS: sitaGLIPtin PHOSPHATE 100 MG TABLET (FP) PO SCH (15:44)
--- NOTE | 2018-08-18 16:06 | ECHO ---
Name: PAULINO, ALBINO Exam:Adult Echocardiogram Study Date: 08/18/2018 02:23 PM Age: 48 yrs Reason For Study: SOB Height: 68 in Weight: 330 lb BSA: 2.5 m2 MMode/2D Measurements & Calculations LVIDd: 5.5 cm Ao root diam: 3.0 cm LVIDs: 3.5 cm LA dimension: 4.6 cm EDV(Teich): 144.9 ml LVOT diam: 2.1 cm ESV(Teich): 49.6 ml Doppler Measurements & Calculations MV E max mike: 83.9 cm/sec Ao V2 max: 200.9 cm/sec MV A max mike: 85.9 cm/sec Ao max P.1 mmHg MV E/A: 0.98 Ao V2 mean: 134.9 cm/sec Ao mean P.5 mmHg Ao V2 VTI: 40.9 cm NIURKA(I,D): 2.3 cm2 NIURKA(V,D): 2.5 cm2 LV V1 max P.1 mmHg SV(LVOT): 93.6 ml LV V1 mean P.9 mmHg LV V1 max: 142.6 cm/sec LV V1 mean: 90.4 cm/sec LV V1 VTI: 26.7 cm Med Peak E' Mike: 7.2 cm/sec Med E/e': 11.6 Lat Peak E' Miek: 7.8 cm/sec Lat E/e': 10.8 Procedure The study was technically limited with all images being suboptimal in quality. Left Ventricle The left ventricle is grossly normal size. Left ventricular systolic function is grossly normal. E/A reversal consistent with but not diagnostic of poor LV compliance. Regional wall motion abnormalities cannot b e excluded due to limited visualization. Right Ventricle The right ventricle is not well visualized. The right ventricle is grossly normal size. Atria The left atrium is mildly dilated. Right atrium not well visualized. Mitral Valve The mitral valve is not well visualized. There is no mitral regurgitation noted. Aortic Valve The aortic valve is not well visualized. No hemodynamically significant valvular aortic stenosis. Pulmonic Valve The pulmonic valve is not well visualized. Great Vessels The aortic root is not well visualized. Pericardium/Pleura There is no pericardial effusion. Interpretation Summary The study was technically limited with all images being suboptimal in quality. The left ventricle is grossly normal size. Left ventricular systolic function is grossly normal. Gabbi onal wall motion abnormalities cannot be excluded due to limited visualization. The right ventricle is not well visualized. The right ventricle is grossly normal size. The left atrium is mildly dilated. Right atrium not well visualized. The aortic valve is not well visualized. No hemodynamically significant valvular aortic stenosis. The mitral valve is not well visualized. MD Rose Gamez 08/18/2018 04:06 PM
[2018-08-18 17:33] LABS: ARTERIAL BLD GAS O2 SATURATION 78.2 % (95-98); ARTERIAL BLOOD GAS BASE EXCESS 10.4 meq/l (-2-2); ARTERIAL BLOOD GAS PO2 47.3 mmHg (80-105); ARTERIAL BLOOD GAS pH 7.35 (7.35-7.45)
[2018-08-18 17:35] LABS: ALLENS TEST POSITIVE
[2018-08-18 17:38] LABS: ARTERIAL BLOOD GAS PCO2 73.7 mmHg (35-45)
[2018-08-18] MEDS: ATORVASTATIN CA 10 MG TABLET (FP) PO SCH (23:26)
[2018-08-19] MEDS: GABAPENTIN 300 MG CAPSULE (FP) PO SCH ×3 (06:18→21:35)
[2018-08-19] MEDS: sitaGLIPtin PHOSPHATE 100 MG TABLET (FP) PO SCH (06:18)
[2018-08-19] MEDS: HEPARIN NA (PORCINE) 5,000 UNITS/ML 1ML VIAL SQ SCH ×3 (06:23→21:35)
[2018-08-19] MEDS: HYDROCHLOROTHIAZIDE 12.5 MG CAPSULE (FP) PO SCH (09:19)
[2018-08-19] MEDS: LISINOPRIL 10 MG TABLET (FP) PO SCH (09:19)
[2018-08-19] MEDS: SENNOSIDES/DOCUSATE COMBO (SENNA PLUS) TABLET (UD) PO SCH (09:19)
[2018-08-19] MEDS ORDERED: REGADENOSON 0.4 MG/5 ML PRE-FILLED SYRINGE IVPUSH ONE ×2 (09:45→09:48)
[2018-08-19 12:25] LABS: ALBUMIN 3.5 g/dl (3.4-5.0); ALK PHOS 94 U/L (45-117); ANION GAP 3 MMOL/L (8-16); BILIRUBIN,TOTAL 0.8 mg/dL (0.2-1); BLOOD UREA NITROGEN 10 mg/dL (7-18); CALCIUM 8.6 mg/dL (8.5-10.1); CHLORIDE 100 mmol/L (98-107); CO2 38 mmol/L (21-32); CREATININE 0.6 mg/dL (0.55-1.3); GLUCOSE,RANDOM 135 mg/dL (74-106); POTASSIUM 3.8 mmol/L (3.5-5.1); SGOT/AST 18 U/L (15-37); SGPT/ALT 22 U/L (13-61); SODIUM 141 mmol/L (136-145); TOT PROT 6.4 g/dl (6.4-8.2)
--- NOTE | 2018-08-19 12:33 | PN ---
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 no sob, no cp - Current Medication List Current Medications: Active Medications Atorvastatin Calcium (Lipitor -) 10 mg PO HS [facility] Last Admin: 08/18/18 23:26 Dose: 10 mg Gabapentin (Neurontin -) 300 mg PO TID [facility] Last Admin: 08/19/18 06:18 Dose: Not Given Heparin Sodium (Porcine) (Heparin -) 5,000 unit SQ TID [facility] Last Admin: 08/19/18 06:23 Dose: 5,000 unit Hydrochlorothiazide (Hctz -) 12.5 mg PO DAILY [facility] Last Admin: 08/19/18 09:19 Dose: 12.5 mg Lisinopril (Prinivil) 10 mg PO DAILY [facility] Last Admin: 08/19/18 09:19 Dose: 10 mg Senna/Docusate Sodium (Pericolace -) 2 tablet PO DAILY [facility] Last Admin: 08/19/18 09:19 Dose: 2 tablet Sitagliptin Phosphate (Januvia -) 100 mg PO DAILY@0700 [facility] Last Admin: 08/19/18 06:18 Dose: Not Given - Objective Vital Signs: Vital Signs Temperature 97.8 F 08/19/18 10:00 Pulse Rate 76 08/19/18 10:00 Respiratory Rate 20 08/19/18 10:00 Blood Pressure 153/87 08/19/18 10:00 O2 Sat by Pulse Oximetry (%) 95 08/19/18 09:00 Constitutional: Yes: Calm Cardiovascular: Yes: Regular Rate and Rhythm, S1, S2 Respiratory: Yes: Diminished Gastrointestinal: Yes: Normal Bowel Sounds, Soft Edema: Yes Neurological: Yes: Alert, Oriented Labs: CBC, BMP 08/18/18 05:30 08/19/18 11:35 Problem List - Problems (1) Diabetes Assessment/Plan: hgba1c 7.2 sliding scale bgm Code(s): E11.9 - TYPE 2 DIABETES MELLITUS WITHOUT COMPLICATIONS Qualifiers: Diabetes mellitus type: type 2 (2) Elevated troponin Assessment/Plan: stress test today results pending lipitor Code(s): R74.8 - ABNORMAL LEVELS OF OTHER SERUM ENZYMES (3) HTN (hypertension) Assessment/Plan: lisinpril hctz Code(s): I10 - ESSENTIAL (PRIMARY) HYPERTENSION
--- NOTE | 2018-08-19 13:50 | PN ---
Progress Note, Physician History of Present Illness: pulmonary awake oob-chair,-resp distress,o2 sat 93% on O2 - Current Medication List Current Medications: Active Medications Atorvastatin Calcium (Lipitor -) 10 mg PO HS [facility] Last Admin: 08/18/18 23:26 Dose: 10 mg Gabapentin (Neurontin -) 300 mg PO TID [facility] Last Admin: 08/19/18 13:24 Dose: 300 mg Heparin Sodium (Porcine) (Heparin -) 5,000 unit SQ TID [facility] Last Admin: 08/19/18 13:25 Dose: 5,000 unit Hydrochlorothiazide (Hctz -) 12.5 mg PO DAILY [facility] Last Admin: 08/19/18 09:19 Dose: 12.5 mg Lisinopril (Prinivil) 10 mg PO DAILY [facility] Last Admin: 08/19/18 09:19 Dose: 10 mg Senna/Docusate Sodium (Pericolace -) 2 tablet PO DAILY [facility] Last Admin: 08/19/18 09:19 Dose: 2 tablet Sitagliptin Phosphate (Januvia -) 100 mg PO DAILY@0700 [facility] Last Admin: 08/19/18 06:18 Dose: Not Given - Objective Vital Signs: Vital Signs Temperature 97.8 F 08/19/18 10:00 Pulse Rate 76 08/19/18 10:00 Respiratory Rate 20 08/19/18 10:00 Blood Pressure 153/87 08/19/18 10:00 O2 Sat by Pulse Oximetry (%) 95 08/19/18 09:00 Constitutional: Yes: No Distress, Obese Eyes: Yes: WNL HENT: Yes: WNL Neck: Yes: WNL Cardiovascular: Yes: Regular Rate and Rhythm, S1, S2 Respiratory: Yes: Diminished Extremities: Yes: WNL Edema: Yes Labs: CBC, BMP 08/18/18 05:30 08/19/18 11:35 Problem List - Problems (1) Hypoxemia Code(s): R09.02 - HYPOXEMIA (2) Elevated troponin Code(s): R74.8 - ABNORMAL LEVELS OF OTHER SERUM ENZYMES (3) KACY (obstructive sleep apnea) Code(s): G47.33 - OBSTRUCTIVE SLEEP APNEA (ADULT) (PEDIATRIC) (4) Unresponsive episode Code(s): R41.89 - OTH SYMPTOMS AND SIGNS W COGNITIVE FUNCTIONS AND AWARENESS (5) Morbid (severe) obesity due to excess calories Code(s): E66.01 - MORBID (SEVERE) OBESITY DUE TO EXCESS CALORIES (6) Morbid (severe) obesity due to excess calories Code(s): E66.01 - MORBID (SEVERE) OBESITY DUE TO EXCESS CALORIES (7) HTN (hypertension) Code(s): I10 - ESSENTIAL (PRIMARY) HYPERTENSION (8) Diabetes Code(s): E11.9 - TYPE 2 DIABETES MELLITUS WITHOUT COMPLICATIONS Qualifiers: Diabetes mellitus type: type 2 Assessment/Plan IMP ACUTE ON CHRONIC HYPOXEMIC/HYPARCAPNEIC RESPIRATORY FAILURE LIKELY SECONDARY SEVERE OSAS,OBESITY HYPOVENTILATION SYNDROME SEVERE OSAS NOT COMPLIANT WITH CPAP UNRESPONSIVENESS LIKELY SECONDARY TO KACY WITH EXCESSIVE DAYTIME SLEEPINESS + TROPONIN R/O PULMONARY HTN DM HTN MORBID OBESITY H/O LAP BAND PLAN O2 TO MINTAIN SAT 90% OR GREATER BIPAP AT NIGHT AND PRN IF PT COMPLIES LASIX DAILY WT TREND TROPONINS FURTHER CARDIAC W/U PER CARDIOLOGY CHEST CTA DR LOVE Problem List - Problems (1) Hypoxemia Code(s): R09.02 - HYPOXEMIA (2) Elevated troponin Code(s): R74.8 - ABNORMAL LEVELS OF OTHER SERUM ENZYMES (3) KACY (obstructive sleep apnea) Code(s): G47.33 - OBSTRUCTIVE SLEEP APNEA (ADULT) (PEDIATRIC) (4) Unresponsive episode Code(s): R41.89 - OTH SYMPTOMS AND SIGNS W COGNITIVE FUNCTIONS AND AWARENESS (5) Morbid (severe) obesity due to excess calories Code(s): E66.01 - MORBID (SEVERE) OBESITY DUE TO EXCESS CALORIES (6) Morbid (severe) obesity due to excess calories Code(s): E66.01 - MORBID (SEVERE) OBESITY DUE TO EXCESS CALORIES (7) HTN (hypertension) Code(s): I10 - ESSENTIAL (PRIMARY) HYPERTENSION (8) Diabetes Code(s): E11.9 - TYPE 2 DIABETES MELLITUS WITHOUT COMPLICATIONS
--- NOTE | 2018-08-19 15:49 | PN ---
Progress Note, Physician Chief Complaint: The patient appears comfortable at the time of exam. He reports no chest pain, shortness, palpitation or dizziness. He dozes off frequently. Telemetry reveiwed, it showed sinus rhythm without arrhythmia. Artifacts noted. History of Present Illness: 48 year old morbidly obese man with a PMHx of HTN, HLD, DMII, post lap band years ago with recurrent weight gain, KACY does not use CPAP, h/o multiple spinal disc herniations s/p laminectomy 2018 admitted with altered mental status , found difficult to awaken. He has chronic daytime somnolence and often falls asleep inappropriately. On labs in the ER was noted to have a mildly elevated troponin. Currently states he feels at his baseline. denies any symptoms currently. But he falls asleep during my interview. Echocardiogram 08/18/2018: TDS. Grossly normal LV size and function. Regadenoson nulcear stress test 08/09/2018: Normal perfusion and LVEF 55%. - Current Medication List Current Medications: Active Medications Atorvastatin Calcium (Lipitor -) 10 mg PO HS [facility] Last Admin: 08/18/18 23:26 Dose: 10 mg Gabapentin (Neurontin -) 300 mg PO TID [facility] Last Admin: 08/19/18 13:24 Dose: 300 mg Heparin Sodium (Porcine) (Heparin -) 5,000 unit SQ TID [facility] Last Admin: 08/19/18 13:25 Dose: 5,000 unit Hydrochlorothiazide (Hctz -) 12.5 mg PO DAILY [facility] Last Admin: 08/19/18 09:19 Dose: 12.5 mg Lisinopril (Prinivil) 10 mg PO DAILY [facility] Last Admin: 08/19/18 09:19 Dose: 10 mg Senna/Docusate Sodium (Pericolace -) 2 tablet PO DAILY [facility] Last Admin: 08/19/18 09:19 Dose: 2 tablet Sitagliptin Phosphate (Januvia -) 100 mg PO DAILY@0700 [facility] Last Admin: 08/19/18 06:18 Dose: Not Given - Objective Vital Signs: Vital Signs Temperature 98 F 08/19/18 14:00 Pulse Rate 69 08/19/18 14:00 Respiratory Rate 20 08/19/18 14:00 Blood Pressure 144/74 08/19/18 14:00 O2 Sat by Pulse Oximetry (%) 95 08/19/18 09:00 General: Well developed. Morbidly obese. No acute distress. Head: Normocephalic. Atraumatic, Eyes: PERRLA, EOMI. Sclerae anicteric. Conjunctivae clear. Neck: Supple. No JVD. No bruits. Heart: Normal S1, S2: Regular rhythm and rate. No murmur. No gallop or rub. Lungs: Symmetrical air entry. Clear to auscultation. No crackles. No wheezing or rhonchi. Abdomen: Soft. Bowel sound positive. Non tender. No masses. Extremities: Trace to 1+ edema. Stasis. No clubbing or cyanosis. Labs: CBC, BMP 08/18/18 05:30 08/19/18 11:35 Assessment/Plan 48 year old morbidly obese man with a PMHx of HTN, HLD, DMII, post lap band years ago with recurrent weight gain, KACY does not use CPAP, h/o multiple spinal disc herniations s/p laminectomy 2018 admitted with altered mental status , found difficult to awaken. He has chronic daytime somnolence and often falls asleep inappropriately. On labs in the ER was noted to have a mildly elevated troponin. Currently states he feels at his baseline. denies any symptoms currently. But he falls asleep during my interview. Echocardiogram 08/18/2018: TDS. Grossly normal LV size and function. Regadenoson nulcear stress test 08/09/2018: Normal perfusion and LVEF 55%. 1) Elevated troponin: -with normal CK level and troponin did not significantly trend up. He has grossly normal LV function and normal myocardial perfusion. Tele shows no arrhythmia. -further cardiac work up can likely be done as outpatient. -May d/c tele. 2) Unresponsiveness -unlikely ACS, does not appear cardiac in origin -appears c/w his inappropriate falling asleep episodes due to severe untreated KACY. Please call us for reconsult as needed.
[2018-08-19] MEDS ORDERED: amLODIPine BESYLATE 5 MG TABLET (FP) PO ONE (18:46)
--- NOTE | 2018-08-19 18:48 | HOSP ---
Subjective - Review of Symptoms Events since last encounter: BP uptrending. Called by RN for 5pm BP 179/94. Norvasc 5mg once. AM dose of Lisinopril increased from 10mg to 20mg. Primary Team will determine final plan of care Physical Examination Vital Signs: Vital Signs Temperature 98.4 F 08/19/18 17:00 Pulse Rate 58 L 08/19/18 17:00 Respiratory Rate 20 08/19/18 17:00 Blood Pressure 179/94 H 08/19/18 17:00 O2 Sat by Pulse Oximetry (%) 95 08/19/18 09:00 Labs: CBC, BMP 08/18/18 05:30 08/19/18 11:35
[2018-08-19] MEDS ORDERED: ACETAMINOPHEN 500 MG TABLET (FP) PO PRN (18:56)
[2018-08-19] MEDS: ATORVASTATIN CA 10 MG TABLET (FP) PO SCH (21:35)
[2018-08-20] MEDS: sitaGLIPtin PHOSPHATE 100 MG TABLET (FP) PO SCH (07:13)
[2018-08-20] MEDS: HEPARIN NA (PORCINE) 5,000 UNITS/ML 1ML VIAL SQ SCH ×3 (07:13→21:25)
[2018-08-20] MEDS: GABAPENTIN 300 MG CAPSULE (FP) PO SCH ×3 (07:14→21:25)
[2018-08-20] MEDS: SENNOSIDES/DOCUSATE COMBO (SENNA PLUS) TABLET (UD) PO SCH (09:36)
[2018-08-20] MEDS: HYDROCHLOROTHIAZIDE 12.5 MG CAPSULE (FP) PO SCH ×2 (09:36→13:33)
[2018-08-20] MEDS: LISINOPRIL 10 MG TABLET (FP) PO SCH (09:37)
--- NOTE | 2018-08-20 12:02 | PN ---
Progress Note, Physician Chief Complaint: over night events noted elevated BP patient used BIPAP first time last night currently falls asleep while talking to him does not have cpap at home will need arrangements made prior to going home sleep apnea screening ordered - Current Medication List Current Medications: Active Medications Acetaminophen (Tylenol -) 1,000 mg PO Q6H PRN PRN Reason: PAIN LEVEL 6-10 Atorvastatin Calcium (Lipitor -) 10 mg PO HS [facility] Last Admin: 08/19/18 21:35 Dose: 10 mg Gabapentin (Neurontin -) 300 mg PO TID [facility] Last Admin: 08/20/18 07:14 Dose: 300 mg Heparin Sodium (Porcine) (Heparin -) 5,000 unit SQ TID [facility] Last Admin: 08/20/18 07:13 Dose: 5,000 unit Hydrochlorothiazide (Hctz -) 25 mg PO DAILY [facility] Lisinopril (Prinivil) 20 mg PO DAILY [facility] Last Admin: 08/20/18 09:37 Dose: 20 mg Senna/Docusate Sodium (Pericolace -) 2 tablet PO DAILY [facility] Last Admin: 08/20/18 09:36 Dose: 2 tablet Sitagliptin Phosphate (Januvia -) 100 mg PO DAILY@0700 [facility] Last Admin: 08/20/18 07:13 Dose: 100 mg - Objective Vital Signs: Vital Signs Temperature 98.2 F 08/20/18 08:41 Pulse Rate 67 08/20/18 08:41 Respiratory Rate 20 08/20/18 08:41 Blood Pressure 145/84 08/20/18 08:41 O2 Sat by Pulse Oximetry (%) 93 L 08/20/18 09:00 Constitutional: Yes: Calm, Obese Cardiovascular: Yes: Regular Rate and Rhythm, S1, S2 Respiratory: Yes: CTA Bilaterally Gastrointestinal: Yes: Normal Bowel Sounds, Soft Edema: No Labs: CBC, BMP 08/18/18 05:30 08/19/18 11:35 Problem List - Problems (1) Diabetes Assessment/Plan: hgba1c 7.2 sliding scale bgm januvia Code(s): E11.9 - TYPE 2 DIABETES MELLITUS WITHOUT COMPLICATIONS Qualifiers: Diabetes mellitus type: type 2 (2) Elevated troponin Assessment/Plan: stress test normal perfusion scan ejection fraction 55 % troponin trending down lipitor Code(s): R74.8 - ABNORMAL LEVELS OF OTHER SERUM ENZYMES (3) HTN (hypertension) Assessment/Plan: lisinpril dose increased hctz dose incrased got norvasc last night Code(s): I10 - ESSENTIAL (PRIMARY) HYPERTENSION Assessment/Plan triology for home sleep study as outpatient to get cpap at home monitor BP dc in AM
--- NOTE | 2018-08-20 12:38 | PN ---
Progress Note (short form) - Note Progress Note: PULMONARY Denies shortness of breath or chest pain. Falls asleep easily during conversation. Vital Signs Period Temp Pulse Resp BP Sys/[place] Pulse Ox Last 24 Hr 97.4 F-98.4 F 56-78 20-20 106-179/74-97 93-96 Gen: NAD in chair Heart: RRR Lung: decreased breath sounds at the bases Abd: soft, nontender Ext: + edema CBC, BMP 08/18/18 05:30 08/19/18 11:35 ABG Results ABG pH 7.35 (7.35-7.45) 08/18/18 17:10 ABG pCO2 at Pt Temp 73.7 mmHg (35-45) H* 08/18/18 17:10 ABG pO2 at Pt Temp 47.3 mmHg (80-105) L 08/18/18 17:10 ABG HCO3 39.4 mmol/L (22-27) H 08/18/18 17:10 ABG O2 Sat (Measured) 78.2 % (95-98) L 08/18/18 17:10 ABG O2 Content 16.8 % vol (15-22) 08/18/18 17:10 ABG Base Excess 10.4 meq/l (-2-2) H 08/18/18 17:10 Active Medications Acetaminophen (Tylenol -) 1,000 mg PO Q6H PRN PRN Reason: PAIN LEVEL 6-10 Atorvastatin Calcium (Lipitor -) 10 mg PO HS [facility] Last Admin: 08/19/18 21:35 Dose: 10 mg Gabapentin (Neurontin -) 300 mg PO TID [facility] Last Admin: 08/20/18 07:14 Dose: 300 mg Heparin Sodium (Porcine) (Heparin -) 5,000 unit SQ TID [facility] Last Admin: 08/20/18 07:13 Dose: 5,000 unit Hydrochlorothiazide (Hctz -) 25 mg PO DAILY [facility] Lisinopril (Prinivil) 20 mg PO DAILY [facility] Last Admin: 08/20/18 09:37 Dose: 20 mg Senna/Docusate Sodium (Pericolace -) 2 tablet PO DAILY [facility] Last Admin: 08/20/18 09:36 Dose: 2 tablet Sitagliptin Phosphate (Januvia -) 100 mg PO DAILY@0700 [facility] Last Admin: 08/20/18 07:13 Dose: 100 mg A/P Acute on Chronic Hypoxic and Hypercapneic Respiratory Failure Severe Obstructive Sleep Apnea Morbid Obesity Obesity Hypoventilation Syndrome +Troponins likely Demand Ischemia HTN DM - pt will require non-invasive home ventilator to help decrease the work of breathing and improve his pulmonary status - if left untreated, may cause harm to patient or - DVT prophylaxis - d/c planning
[2018-08-20 14:10] VITALS: BMI 52.1
[2018-08-20] MEDS: ATORVASTATIN CA 10 MG TABLET (FP) PO SCH (21:25)
[2018-08-21] MEDS: HEPARIN NA (PORCINE) 5,000 UNITS/ML 1ML VIAL SQ SCH ×3 (05:29→21:18)
[2018-08-21] MEDS: GABAPENTIN 300 MG CAPSULE (FP) PO SCH ×3 (05:29→21:18)
[2018-08-21] MEDS: sitaGLIPtin PHOSPHATE 100 MG TABLET (FP) PO SCH (06:30)
[2018-08-21 07:50] LABS: ARTERIAL BLD GAS O2 SATURATION 92.2 % (95-98); ARTERIAL BLOOD GAS PO2 70.4 mmHg (80-105); ARTERIAL BLOOD GAS pH 7.32 (7.35-7.45)
[2018-08-21 07:56] LABS: ALLENS TEST POSITIVE
[2018-08-21 08:04] LABS: ARTERIAL BLOOD GAS PCO2 88.3 mmHg (35-45)
[2018-08-21] MEDS: LISINOPRIL 10 MG TABLET (FP) PO SCH (10:29)
[2018-08-21] MEDS: HYDROCHLOROTHIAZIDE 12.5 MG CAPSULE (FP) PO SCH (10:30)
[2018-08-21] MEDS: SENNOSIDES/DOCUSATE COMBO (SENNA PLUS) TABLET (UD) PO SCH (10:30)
--- NOTE | 2018-08-21 11:00 | PN ---
Progress Note, Physician History of Present Illness: pulmonary sleeping on bipap,02 sat92% - Current Medication List Current Medications: Active Medications Acetaminophen (Tylenol -) 1,000 mg PO Q6H PRN PRN Reason: PAIN LEVEL 6-10 Last Admin: 08/21/18 02:27 Dose: 1,000 mg Atorvastatin Calcium (Lipitor -) 10 mg PO HS [facility] Last Admin: 08/20/18 21:25 Dose: 10 mg Gabapentin (Neurontin -) 300 mg PO TID [facility] Last Admin: 08/21/18 05:29 Dose: 300 mg Heparin Sodium (Porcine) (Heparin -) 5,000 unit SQ TID [facility] Last Admin: 08/21/18 05:29 Dose: 5,000 unit Hydrochlorothiazide (Hctz -) 25 mg PO DAILY [facility] Last Admin: 08/21/18 10:30 Dose: 25 mg Lisinopril (Prinivil) 20 mg PO DAILY [facility] Last Admin: 08/21/18 10:29 Dose: 20 mg Senna/Docusate Sodium (Pericolace -) 2 tablet PO DAILY [facility] Last Admin: 08/21/18 10:30 Dose: 2 tablet Sitagliptin Phosphate (Januvia -) 100 mg PO DAILY@0700 [facility] Last Admin: 08/21/18 06:30 Dose: 100 mg - Objective Vital Signs: Vital Signs Temperature 97.9 F 08/21/18 06:00 Pulse Rate 69 08/21/18 06:00 Respiratory Rate 20 08/21/18 06:00 Blood Pressure 126/84 08/21/18 06:00 O2 Sat by Pulse Oximetry (%) 93 L 08/21/18 08:17 Constitutional: Yes: Obese, Other (sleeping) Eyes: Yes: WNL HENT: Yes: WNL Neck: Yes: WNL Cardiovascular: Yes: Regular Rate and Rhythm, S1, S2 Respiratory: Yes: Diminished Gastrointestinal: Yes: Normal Bowel Sounds, Soft, Abdomen, Obese Extremities: Yes: WNL Edema: Yes Labs: CBC, BMP Laboratory Tests 08/21/18 07:37 ABG pH 7.32 L ABG pCO2 at Pt Temp 88.3 H* ABG pO2 at Pt Temp 70.4 L ABG HCO3 44.1 H ABG O2 Sat (Measured) 92.2 L Oxygen Flow Rate 3.5 l Problem List - Problems (1) Hypoxemia Code(s): R09.02 - HYPOXEMIA (2) Elevated troponin Code(s): R74.8 - ABNORMAL LEVELS OF OTHER SERUM ENZYMES (3) KACY (obstructive sleep apnea) Code(s): G47.33 - OBSTRUCTIVE SLEEP APNEA (ADULT) (PEDIATRIC) (4) Unresponsive episode Code(s): R41.89 - OTH SYMPTOMS AND SIGNS W COGNITIVE FUNCTIONS AND AWARENESS (5) Morbid (severe) obesity due to excess calories Code(s): E66.01 - MORBID (SEVERE) OBESITY DUE TO EXCESS CALORIES (6) Morbid (severe) obesity due to excess calories Code(s): E66.01 - MORBID (SEVERE) OBESITY DUE TO EXCESS CALORIES (7) HTN (hypertension) Code(s): I10 - ESSENTIAL (PRIMARY) HYPERTENSION (8) Diabetes Code(s): E11.9 - TYPE 2 DIABETES MELLITUS WITHOUT COMPLICATIONS Qualifiers: Diabetes mellitus type: type 2 Assessment/Plan IMP ACUTE ON CHRONIC HYPOXEMIC/HYPARCAPNEIC RESPIRATORY FAILURE LIKELY SECONDARY SEVERE OSAS,OBESITY HYPOVENTILATION SYNDROME SEVERE OSAS NOT COMPLIANT WITH CPAP UNRESPONSIVENESS LIKELY SECONDARY TO KACY WITH EXCESSIVE DAYTIME SLEEPINESS + TROPONIN R/O PULMONARY HTN DM HTN MORBID OBESITY H/O LAP BAND PLAN O2 TO MINTAIN SAT 90% OR GREATER BIPAP AT NIGHT AND PRN IF PT COMPLIES LASIX DAILY WT PT WILL REQUIRE TRILOGY DEVICE AT HOME DR LOVE Problem List - Problems (1) Hypoxemia Code(s): R09.02 - HYPOXEMIA (2) Elevated troponin Code(s): R74.8 - ABNORMAL LEVELS OF OTHER SERUM ENZYMES (3) KACY (obstructive sleep apnea) Code(s): G47.33 - OBSTRUCTIVE SLEEP APNEA (ADULT) (PEDIATRIC) (4) Unresponsive episode Code(s): R41.89 - OTH SYMPTOMS AND SIGNS W COGNITIVE FUNCTIONS AND AWARENESS (5) Morbid (severe) obesity due to excess calories Code(s): E66.01 - MORBID (SEVERE) OBESITY DUE TO EXCESS CALORIES (6) Morbid (severe) obesity due to excess calories Code(s): E66.01 - MORBID (SEVERE) OBESITY DUE TO EXCESS CALORIES (7) HTN (hypertension) Code(s): I10 - ESSENTIAL (PRIMARY) HYPERTENSION (8) Diabetes Code(s): E11.9 - TYPE 2 DIABETES MELLITUS WITHOUT COMPLICATIONS
--- NOTE | 2018-08-21 13:47 | HP ---
Admitting History and Physical - Admission Chief Complaint: s/p ARCHIVIST for beeing unresponsive on a chair History of Present Illness: 48 YOM w a PMH of NIDDM, HTN, HLD, KACY, multiple spinal disc herniations s/p laminectomy who presents to the ER s/p ARCHIVIST upstairs at [facility] after being found unresponsive in the chair by a nurse while visiting his mother at the hospital. Patient reports that he has a history of sleep apnea and is often tired throughout the day. He notes he may have fallen asleep earlier today. Does not use CPAP at home. Denies fever, chills, chest pain, palpitation, dizziness, weakness, N, V, D, abdominal pain, No sick contacts or travel. No new changes in medications. PCP: Dr. Hernadez (Formerly Dr. Bedoya) Allergies: NKA, NKDA Social Hx: recreational drinking. Denies smoking or other substance usage. PSH: Laminectomy, right knee replacement. - Past Medical History Cardiovascular: Yes: HTN, Hyperlipdemia Pulmonary: Yes: Sleep Apnea Musculoskeletal: Yes: Chronic low back pain Endocrine: Yes: Diabetes Mellitus - Past Surgical History Past Surgical History: Yes: Bariatric Surgery, Laminectomy - Smoking History Smoking history: Former smoker Have you smoked in the past 12 months: No Aproximately how many cigarettes per day: 0 If you are a former smoker, when did you quit?: 17 YRS - Alcohol/Substance Use Hx Alcohol Use: No - Social History ADL: Independent History of Recent Travel: No Home Medications - Allergies Allergies/Adverse Reactions: Allergies Allergy/AdvReac Type Severity Reaction Status Date / Time No Known Allergies Allergy Verified 03/07/16 15:31 - Home Medications Home Medications: Ambulatory Orders Atorvastatin Calcium [Lipitor] 10 mg PO HS 05/12/12 Lisinopril/Hydrochlorothiazide [Lisinopril-Hctz 10-12.5 mg Tab] 1 each PO DAILY 05/12/12 Multivitamin [Multivitamins] 1 each PO DAILY 10/25/13 Sennosides/Docusate Sodium [Eql Stool Softener-Stim Lax Tb] 2 each PO DAILY 07/09 Diazepam [Valium] 5 mg PO Q8H #10 tablet MDD 3 12/08/15 Methylprednisolone [Medrol Dose Luis] 4 mg PO ASDIR #21 tablet 12/08/15 Gabapentin [Neurontin -] 300 mg PO Q8H 08/18/18 Metformin HCl [Glucophage] 500 mg PO BID 08/18/18 Physical Examination Vital Signs: Vital Signs Temperature 97.9 F 08/21/18 06:00 Pulse Rate 79 08/21/18 12:20 Respiratory Rate 20 08/21/18 09:00 Blood Pressure 126/84 08/21/18 06:00 O2 Sat by Pulse Oximetry (%) 92 L 08/21/18 12:20 Constitutional: Yes: Calm, Obese Cardiovascular: Yes: Regular Rate and Rhythm, S1, S2 Respiratory: Yes: CTA Bilaterally (in upper lungs), Diminished Gastrointestinal: Yes: Normal Bowel Sounds, Soft Edema: Yes Neurological: Yes: Alert, Oriented Labs: CBC, BMP 08/18/18 05:30 08/19/18 11:35 Imaging - Results Chest X-ray: Report Reviewed (no acute pathology) EKG: Report Reviewed (NSR) Problem List - Problems (1) KACY (obstructive sleep apnea) Assessment/Plan: needs oxygen and trilogy machine at home bipap at night and PRN in hospital sleep study as outpatient pulm on board Code(s): G47.33 - OBSTRUCTIVE SLEEP APNEA (ADULT) (PEDIATRIC) (2) Diabetes Assessment/Plan: hgba1c 7.2 sliding scale bgm januvia Code(s): E11.9 - TYPE 2 DIABETES MELLITUS WITHOUT COMPLICATIONS Qualifiers: Diabetes mellitus type: type 2 (3) Elevated troponin Assessment/Plan: stress test normal perfusion scan ejection fraction 55 % troponin trending down lipitor Code(s): R74.8 - ABNORMAL LEVELS OF OTHER SERUM ENZYMES (4) HTN (hypertension) Assessment/Plan: lisinpril dose increased hctz dose incrased got norvasc last night Code(s): I10 - ESSENTIAL (PRIMARY) HYPERTENSION
--- NOTE | 2018-08-21 13:50 | DS ---
Physical Examination Vital Signs: Vital Signs Temperature 97.9 F 08/21/18 06:00 Pulse Rate 79 08/21/18 12:20 Respiratory Rate 20 08/21/18 09:00 Blood Pressure 126/84 08/21/18 06:00 O2 Sat by Pulse Oximetry (%) 92 L 08/21/18 12:20 Constitutional: Yes: Calm, Obese Cardiovascular: Yes: Regular Rate and Rhythm, S1, S2 Respiratory: Yes: CTA Bilaterally Gastrointestinal: Yes: Normal Bowel Sounds, Soft Edema: Yes Neurological: Yes: Alert, Oriented Labs: CBC, BMP 08/18/18 05:30 08/19/18 11:35 Discharge Summary Reason For Visit: NON-ST ELEVATION MYOCARDIAL INFARCTION/SYNCOPE Current Active Problems Diabetes (Acute) Elevated troponin (Acute) HTN (hypertension) (Acute) Hypoxemia (Acute) Morbid (severe) obesity due to excess calories (Acute) Morbid (severe) obesity due to excess calories (Acute) NSTEMI (non-ST elevated myocardial infarction) (Acute) KACY (obstructive sleep apnea) (Acute) Syncope (Acute) Unresponsive episode (Acute) Other Procedures: stress test normal. 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 after being found unresponsive in the chair by a nurse while visiting his mother at the hospital. Patient reports that he has a history of sleep apnea and is often tired throughout the day. He notes he may have fallen asleep earlier today. Does not use CPAP at home. Denies fever, chills, chest pain, palpitation, dizziness, weakness, N, V, D, abdominal pain, No sick contacts or travel. No new changes in medications. admitted to telemetry and got stress test seen by cardiology and pulmonary Condition: Guarded - Instructions Diet, Activity, Other Instructions: sleep study as outpatient triology at night and as needed during the day home oxygen Referrals: Smith Webb MD [Staff Physician] - (sleep study and pulmonary function test) - Home Medications Comprehensive Discharge Medication List: Ambulatory Orders Atorvastatin Calcium [Lipitor] 10 mg PO HS 05/12/12 Lisinopril/Hydrochlorothiazide [Lisinopril-Hctz 10-12.5 mg Tab] 1 each PO DAILY 05/12/12 Multivitamin [Multivitamins] 1 each PO DAILY 10/25/13 Sennosides/Docusate Sodium [Eql Stool Softener-Stim Lax Tb] 2 each PO DAILY 07/09 Diazepam [Valium] 5 mg PO Q8H #10 tablet MDD 3 12/08/15 Methylprednisolone [Medrol Dose Luis] 4 mg PO ASDIR #21 tablet 12/08/15 Gabapentin [Neurontin -] 300 mg PO Q8H 08/18/18 Metformin HCl [Glucophage] 500 mg PO BID 08/18/18
[2018-08-21] MEDS: ATORVASTATIN CA 10 MG TABLET (FP) PO SCH (21:18)
[2018-08-22] MEDS: sitaGLIPtin PHOSPHATE 100 MG TABLET (FP) PO SCH (06:07)
[2018-08-22] MEDS: GABAPENTIN 300 MG CAPSULE (FP) PO SCH ×3 (06:07→22:11)
[2018-08-22] MEDS: HEPARIN NA (PORCINE) 5,000 UNITS/ML 1ML VIAL SQ SCH ×3 (06:07→22:11)
[2018-08-22] MEDS: HYDROCHLOROTHIAZIDE 12.5 MG CAPSULE (FP) PO SCH (10:05)
[2018-08-22] MEDS: LISINOPRIL 10 MG TABLET (FP) PO SCH (10:06)
[2018-08-22] MEDS: SENNOSIDES/DOCUSATE COMBO (SENNA PLUS) TABLET (UD) PO SCH (10:08)
--- NOTE | 2018-08-22 12:02 | PN ---
Progress Note (short form) - Note Progress Note: PATIENT COMFORTABLE EVENTS AND NOTES REVIEWED DC HOME
--- NOTE | 2018-08-22 14:21 | PN ---
Progress Note (short form) - Note Progress Note: OOB to chair on [place] O2. Apparently awaiting Triology device to b delivered home. Intake & Output 08/19/18 08/20/18 08/21/18 08/22/18 23:59 23:59 23:59 23:59 Intake Total 6686 953 9751 340 Output Total 300 1300 500 Balance 1000 420 -270 -160 Weight 345 lb 9.6 oz 343 lb 343 lb 2 oz 342 lb 8 oz Last Vital Signs Temp Pulse Resp BP Pulse Ox 97.9 F 66 20 114/63 93 L 08/22/18 09:00 08/22/18 09:00 08/22/18 09:00 08/22/18 09:00 08/22/18 09:00 Active Medications Acetaminophen (Tylenol -) 1,000 mg PO Q6H PRN PRN Reason: PAIN LEVEL 6-10 Last Admin: 08/21/18 02:27 Dose: 1,000 mg Atorvastatin Calcium (Lipitor -) 10 mg PO HS [facility] Last Admin: 08/21/18 21:18 Dose: 10 mg Gabapentin (Neurontin -) 300 mg PO TID [facility] Last Admin: 08/22/18 14:04 Dose: 300 mg Heparin Sodium (Porcine) (Heparin -) 5,000 unit SQ TID [facility] Last Admin: 08/22/18 14:03 Dose: 5,000 unit Hydrochlorothiazide (Hctz -) 25 mg PO DAILY [facility] Last Admin: 08/22/18 10:05 Dose: 25 mg Lisinopril (Prinivil) 20 mg PO DAILY [facility] Last Admin: 08/22/18 10:06 Dose: 20 mg Senna/Docusate Sodium (Pericolace -) 2 tablet PO DAILY [facility] Last Admin: 08/22/18 10:08 Dose: 2 tablet Sitagliptin Phosphate (Januvia -) 100 mg PO DAILY@0700 [facility] Last Admin: 08/22/18 06:07 Dose: 100 mg Constitutional: Yes: Obese, NAD on [place] O2 Eyes: Yes: WNL HENT: Yes: WNL Neck: Yes: WNL Cardiovascular: Yes: Regular Rate and Rhythm, S1, S2 Respiratory: Yes: Diminished Gastrointestinal: Yes: Normal Bowel Sounds, Soft, Abdomen, Obese Extremities: Yes: WNL Edema: Yes Labs: Laboratory Results - last 24 hr 08/21/18 08/22/18 20:47 05:36 POC Glucometer 135 112 Problem List - Problems (1) Hypoxemia Code(s): R09.02 - HYPOXEMIA (2) Elevated troponin Code(s): R74.8 - ABNORMAL LEVELS OF OTHER SERUM ENZYMES (3) KACY (obstructive sleep apnea) Code(s): G47.33 - OBSTRUCTIVE SLEEP APNEA (ADULT) (PEDIATRIC) (4) Unresponsive episode Code(s): R41.89 - OTH SYMPTOMS AND SIGNS W COGNITIVE FUNCTIONS AND AWARENESS (5) Morbid (severe) obesity due to excess calories Code(s): E66.01 - MORBID (SEVERE) OBESITY DUE TO EXCESS CALORIES (6) Morbid (severe) obesity due to excess calories Code(s): E66.01 - MORBID (SEVERE) OBESITY DUE TO EXCESS CALORIES (7) HTN (hypertension) Code(s): I10 - ESSENTIAL (PRIMARY) HYPERTENSION (8) Diabetes Code(s): E11.9 - TYPE 2 DIABETES MELLITUS WITHOUT COMPLICATIONS Qualifiers: Diabetes mellitus type: type 2 Assessment/Plan IMP ACUTE ON CHRONIC HYPOXEMIC/HYPARCAPNEIC RESPIRATORY FAILURE LIKELY SECONDARY SEVERE OSAS,OBESITY HYPOVENTILATION SYNDROME SEVERE OSAS NOT COMPLIANT WITH CPAP UNRESPONSIVENESS LIKELY SECONDARY TO OHS / OSAS WITH EXCESSIVE DAYTIME SLEEPINESS + TROPONIN R/O PULMONARY HTN DM HTN MORBID OBESITY H/O LAP BAND PLAN O2 TO MINTAIN SAT 90% OR GREATER LASIX DAILY WT TRILOGY DEVICE TO BE DELIVERED TO THE PATIENT'S HOME DR QUINTERO
[2018-08-22] MEDS: ATORVASTATIN CA 10 MG TABLET (FP) PO SCH (22:11)
[2018-08-23] MEDS: GABAPENTIN 300 MG CAPSULE (FP) PO SCH ×3 (05:34→21:22)
[2018-08-23] MEDS: HEPARIN NA (PORCINE) 5,000 UNITS/ML 1ML VIAL SQ SCH ×3 (05:34→21:22)
[2018-08-23] MEDS: sitaGLIPtin PHOSPHATE 100 MG TABLET (FP) PO SCH (06:11)
--- NOTE | 2018-08-23 10:31 | PN ---
Progress Note (short form) - Note Progress Note: PATIENT AWAITING TRILOGY DEVISE TO BE DELIVERED TO HIS HOME COMFORTABLE NAD MAY SHOWER
[2018-08-23] MEDS: LISINOPRIL 10 MG TABLET (FP) PO SCH (10:33)
[2018-08-23] MEDS: HYDROCHLOROTHIAZIDE 12.5 MG CAPSULE (FP) PO SCH (10:33)
[2018-08-23] MEDS: SENNOSIDES/DOCUSATE COMBO (SENNA PLUS) TABLET (UD) PO SCH (10:34)
--- NOTE | 2018-08-23 12:20 | PN ---
Progress Note (short form) - Note Progress Note: Feels OK. No acute events overnight. Awaiting Triology device to be delivered home. Intake & Output 08/20/18 08/21/18 08/22/18 08/23/18 23:59 23:59 23:59 23:59 Intake Total 720 1030 1230 10 Output Total 300 1300 750 275 Balance 420 -270 480 -265 Weight 343 lb 343 lb 2 oz 342 lb 8 oz 337 lb 12.8 oz Last Vital Signs Temp Pulse Resp BP Pulse Ox 98.0 F 63 20 148/90 96 08/23/18 06:00 08/23/18 06:00 08/23/18 06:00 08/23/18 06:00 08/23/18 06:00 Active Medications Acetaminophen (Tylenol -) 1,000 mg PO Q6H PRN PRN Reason: PAIN LEVEL 6-10 Last Admin: 08/21/18 02:27 Dose: 1,000 mg Atorvastatin Calcium (Lipitor -) 10 mg PO HS [facility] Last Admin: 08/22/18 22:11 Dose: 10 mg Gabapentin (Neurontin -) 300 mg PO TID [facility] Last Admin: 08/23/18 05:34 Dose: 300 mg Heparin Sodium (Porcine) (Heparin -) 5,000 unit SQ TID [facility] Last Admin: 08/23/18 05:34 Dose: 5,000 unit Hydrochlorothiazide (Hctz -) 25 mg PO DAILY [facility] Last Admin: 08/23/18 10:33 Dose: 25 mg Lisinopril (Prinivil) 20 mg PO DAILY [facility] Last Admin: 08/23/18 10:33 Dose: 20 mg Senna/Docusate Sodium (Pericolace -) 2 tablet PO DAILY [facility] Last Admin: 08/23/18 10:34 Dose: 2 tablet Sitagliptin Phosphate (Januvia -) 100 mg PO DAILY@0700 [facility] Last Admin: 08/23/18 06:11 Dose: 100 mg Constitutional: Yes: Obese, NAD Eyes: Yes: WNL HENT: Yes: WNL Neck: Yes: WNL Cardiovascular: Yes: Regular Rate and Rhythm, S1, S2 Respiratory: Yes: Diminished Gastrointestinal: Yes: Normal Bowel Sounds, Soft, Abdomen, Obese Extremities: Yes: WNL Edema: Yes Labs: Laboratory Results - last 24 hr 08/23/18 05:39 POC Glucometer 112 Problem List - Problems (1) Hypoxemia Code(s): R09.02 - HYPOXEMIA (2) Elevated troponin Code(s): R74.8 - ABNORMAL LEVELS OF OTHER SERUM ENZYMES (3) KACY (obstructive sleep apnea) Code(s): G47.33 - OBSTRUCTIVE SLEEP APNEA (ADULT) (PEDIATRIC) (4) Unresponsive episode Code(s): R41.89 - OTH SYMPTOMS AND SIGNS W COGNITIVE FUNCTIONS AND AWARENESS (5) Morbid (severe) obesity due to excess calories Code(s): E66.01 - MORBID (SEVERE) OBESITY DUE TO EXCESS CALORIES (6) Morbid (severe) obesity due to excess calories Code(s): E66.01 - MORBID (SEVERE) OBESITY DUE TO EXCESS CALORIES (7) HTN (hypertension) Code(s): I10 - ESSENTIAL (PRIMARY) HYPERTENSION (8) Diabetes Code(s): E11.9 - TYPE 2 DIABETES MELLITUS WITHOUT COMPLICATIONS Qualifiers: Diabetes mellitus type: type 2 Assessment/Plan IMP ACUTE ON CHRONIC HYPOXEMIC/HYPARCAPNEIC RESPIRATORY FAILURE LIKELY SECONDARY SEVERE OSAS,OBESITY HYPOVENTILATION SYNDROME SEVERE OSAS NOT COMPLIANT WITH CPAP UNRESPONSIVENESS LIKELY SECONDARY TO OHS / OSAS WITH EXCESSIVE DAYTIME SLEEPINESS + TROPONIN DM HTN MORBID OBESITY H/O LAP BAND PLAN O2 TO MAINTAIN SAT 88 % TO 92% LASIX DAILY WT TRILOGY DEVICE TO BE DELIVERED TO THE PATIENT'S HOME DR QUINTERO
[2018-08-23] MEDS: ATORVASTATIN CA 10 MG TABLET (FP) PO SCH (21:22)
[2018-08-24] MEDS: GABAPENTIN 300 MG CAPSULE (FP) PO SCH (06:19)
[2018-08-24] MEDS: HEPARIN NA (PORCINE) 5,000 UNITS/ML 1ML VIAL SQ SCH (06:19)
[2018-08-24] MEDS: sitaGLIPtin PHOSPHATE 100 MG TABLET (FP) PO SCH (06:19)
[2018-08-24 09:45] VITALS: BP 110/60; PULSE 68; TEMP 98
[2018-08-24] MEDS: HYDROCHLOROTHIAZIDE 12.5 MG CAPSULE (FP) PO SCH (10:42)
[2018-08-24] MEDS: LISINOPRIL 10 MG TABLET (FP) PO SCH (10:42)
[2018-08-24] MEDS: SENNOSIDES/DOCUSATE COMBO (SENNA PLUS) TABLET (UD) PO SCH (10:43)
--- NOTE | 2018-08-24 12:41 | PN ---
Progress Note, Physician Chief Complaint: patient seen and examined wants to go home bipap at night - Current Medication List Current Medications: Active Medications Acetaminophen (Tylenol -) 1,000 mg PO Q6H PRN PRN Reason: PAIN LEVEL 6-10 Last Admin: 08/21/18 02:27 Dose: 1,000 mg Atorvastatin Calcium (Lipitor -) 10 mg PO HS [facility] Last Admin: 08/23/18 21:22 Dose: 10 mg Gabapentin (Neurontin -) 300 mg PO TID [facility] Last Admin: 08/24/18 06:19 Dose: 300 mg Heparin Sodium (Porcine) (Heparin -) 5,000 unit SQ TID [facility] Last Admin: 08/24/18 06:19 Dose: 5,000 unit Hydrochlorothiazide (Hctz -) 25 mg PO DAILY [facility] Last Admin: 08/24/18 10:42 Dose: 25 mg Lisinopril (Prinivil) 20 mg PO DAILY [facility] Last Admin: 08/24/18 10:42 Dose: 20 mg Senna/Docusate Sodium (Pericolace -) 2 tablet PO DAILY [facility] Last Admin: 08/24/18 10:43 Dose: 2 tablet Sitagliptin Phosphate (Januvia -) 100 mg PO DAILY@0700 [facility] Last Admin: 08/24/18 06:19 Dose: 100 mg - Objective Vital Signs: Vital Signs Temperature 98 F 08/24/18 09:00 Pulse Rate 68 08/24/18 09:00 Respiratory Rate 18 08/24/18 09:00 Blood Pressure 110/60 08/24/18 09:00 O2 Sat by Pulse Oximetry (%) 94 L 08/24/18 09:00 Constitutional: Yes: Calm Cardiovascular: Yes: Regular Rate and Rhythm, S1, S2 Respiratory: Yes: CTA Bilaterally, Diminished (at bases) Gastrointestinal: Yes: Normal Bowel Sounds, Soft, Abdomen, Obese Neurological: Yes: Alert Labs: CBC, BMP 08/18/18 05:30 08/19/18 11:35 Problem List - Problems (1) KACY (obstructive sleep apnea) Assessment/Plan: needs oxygen and trilogy machine at home bipap at night and PRN in hospital sleep study as outpatient pulm on board Code(s): G47.33 - OBSTRUCTIVE SLEEP APNEA (ADULT) (PEDIATRIC) (2) Diabetes Assessment/Plan: hgba1c 7.2 sliding scale bgm januvia Code(s): E11.9 - TYPE 2 DIABETES MELLITUS WITHOUT COMPLICATIONS Qualifiers: Diabetes mellitus type: type 2 (3) Elevated troponin Assessment/Plan: stress test normal perfusion scan ejection fraction 55 % troponin trending down now normal lipitor Code(s): R74.8 - ABNORMAL LEVELS OF OTHER SERUM ENZYMES (4) HTN (hypertension) Assessment/Plan: lisinpril dose increased hctz dose incrased got norvasc last night Code(s): I10 - ESSENTIAL (PRIMARY) HYPERTENSION Assessment/Plan to get triology sleep study as outpatient to get cpap at home
--- NOTE | 2018-08-24 12:54 | PN ---
Progress Note (short form) - Note Progress Note: Feels OK. No acute events overnight. Awaiting [employer] device to be delivered home. Intake & Output 08/21/18 08/22/18 08/23/18 08/24/18 23:59 23:59 23:59 23:59 Intake Total 1030 1230 1330 240 Output Total 5201 339 9673 1040 Balance -270 480 -545 -800 Weight 343 lb 2 oz 342 lb 8 oz 337 lb 12.8 oz 338 lb Last Vital Signs Temp Pulse Resp BP Pulse Ox 98 F 68 18 110/60 94 L 08/24/18 09:00 08/24/18 09:00 08/24/18 09:00 08/24/18 09:00 08/24/18 09:00 Active Medications Acetaminophen (Tylenol -) 1,000 mg PO Q6H PRN PRN Reason: PAIN LEVEL 6-10 Last Admin: 08/21/18 02:27 Dose: 1,000 mg Atorvastatin Calcium (Lipitor -) 10 mg PO HS [facility] Last Admin: 08/23/18 21:22 Dose: 10 mg Gabapentin (Neurontin -) 300 mg PO TID [facility] Last Admin: 08/24/18 06:19 Dose: 300 mg Heparin Sodium (Porcine) (Heparin -) 5,000 unit SQ TID [facility] Last Admin: 08/24/18 06:19 Dose: 5,000 unit Hydrochlorothiazide (Hctz -) 25 mg PO DAILY [facility] Last Admin: 08/24/18 10:42 Dose: 25 mg Lisinopril (Prinivil) 20 mg PO DAILY [facility] Last Admin: 08/24/18 10:42 Dose: 20 mg Senna/Docusate Sodium (Pericolace -) 2 tablet PO DAILY [facility] Last Admin: 08/24/18 10:43 Dose: 2 tablet Sitagliptin Phosphate (Januvia -) 100 mg PO DAILY@0700 [facility] Last Admin: 08/24/18 06:19 Dose: 100 mg Constitutional: Yes: Obese, NAD Eyes: Yes: WNL HENT: Yes: WNL Neck: Yes: WNL Cardiovascular: Yes: Regular Rate and Rhythm, S1, S2 Respiratory: Yes: Diminished Gastrointestinal: Yes: Normal Bowel Sounds, Soft, Abdomen, Obese Extremities: Yes: WNL Edema: Yes Labs: Laboratory Results - last 24 hr 04/01/19 05:35 POC Glucometer 127 Problem List - Problems (1) Hypoxemia Code(s): R09.02 - HYPOXEMIA (2) Elevated troponin Code(s): R74.8 - ABNORMAL LEVELS OF OTHER SERUM ENZYMES (3) KACY (obstructive sleep apnea) Code(s): G47.33 - OBSTRUCTIVE SLEEP APNEA (ADULT) (PEDIATRIC) (4) Unresponsive episode Code(s): R41.89 - OTH SYMPTOMS AND SIGNS W COGNITIVE FUNCTIONS AND AWARENESS (5) Morbid (severe) obesity due to excess calories Code(s): E66.01 - MORBID (SEVERE) OBESITY DUE TO EXCESS CALORIES (6) Morbid (severe) obesity due to excess calories Code(s): E66.01 - MORBID (SEVERE) OBESITY DUE TO EXCESS CALORIES (7) HTN (hypertension) Code(s): I10 - ESSENTIAL (PRIMARY) HYPERTENSION (8) Diabetes Code(s): E11.9 - TYPE 2 DIABETES MELLITUS WITHOUT COMPLICATIONS Qualifiers: Diabetes mellitus type: type 2 Assessment/Plan IMP ACUTE ON CHRONIC HYPOXEMIC / HYPERCAPNEIC RESPIRATORY FAILURE LIKELY SECONDARY SEVERE OSAS,OBESITY HYPOVENTILATION SYNDROME SEVERE OSAS NOT COMPLIANT WITH CPAP UNRESPONSIVENESS LIKELY SECONDARY TO OHS / OSAS WITH EXCESSIVE DAYTIME SLEEPINESS + TROPONIN DM HTN MORBID OBESITY H/O LAP BAND PLAN HOME O2 HAS BEEN ARRANGED TRILOGY DEVICE STILL TO BE DELIVERED: PATIENT IS CLINICALLY MUCH IMPROVED : CAN BE DISCHARGED HOME TODAY PATIENT ADVISED ABOUT AVOIDANCE OF DRIVING AND ACTIVITIES THAT REQUIRES INCREASED VIGILANCE DR QUINTERO
== END 2018-08-24 14:54 | disposition home or self-care (01) | DRG 115 ==
LOC: JER 14:04 → JERBED 16:59 → J4W 08-18 11:16
PROVIDERS: ADMIT Family Medicine; ATTEND Family Medicine
PROC: 5A09557 Assistance with Respiratory Ventilation, Greater than 96 Consecutive Hours, Continuous Positive Airway Pressure (ICD-10-PCS; principal; 2018-08-17)
DX: G47.33 Obstructive sleep apnea (adult) (pediatric) (principal); J96.22 Acute and chronic respiratory failure with hypercapnia; J96.21 Acute and chronic respiratory failure with hypoxia; R74.8 Abnormal levels of other serum enzymes; R41.89 Other symptoms and signs involving cognitive functions and awareness; E66.01 Morbid (severe) obesity due to excess calories; I10 Essential (primary) hypertension; E11.9 Type 2 diabetes mellitus without complications; E78.5 Hyperlipidemia, unspecified; Z68.43 Body mass index [BMI] 50.0-59.9, adult
CPT/HCPCS: 36415; 36600; 71046-TC-FY; 71275-TC; 78452-TC; 80053; 80061; 81003; 82550; 82803; 82962; 83036; 83721; 83735; 83880; 84484; 85025; 85379; 93005; 93010; 93017; 93306-TC; 93970-TC; 94660; 94761; 99284-25; A9502; J1644; J2785

== ENCOUNTER 2020-12-17 04:15 | Emergency (ER) | payer OTHER ==
[2020-12-17 04:28] VITALS: BP 115/66; PULSE 82; TEMP 97.6; BMI 48.0
[2020-12-17] MEDS ORDERED: ACETAMINOPHEN 500 MG TABLET (FP) PO ONE (05:43)
[2020-12-17] MEDS ORDERED: ACETAMINOPHEN 325 MG TABLET (FP) ONE (05:57)
== END 2020-12-17 06:13 | disposition home or self-care (01) ==
LOC: JER 04:15
DX: R51.9 Headache, unspecified (principal)
CPT/HCPCS: 99283-25